=== PATIENT | female | born 1980 | race Caucasian/White ===

== ENCOUNTER 2016-11-19 22:19 | Outpatient (CLI) | payer MEDICAID ==
[~2016-11-19] VITALS: Ht 165.1 cm; Wt 91.0 kg
[~2016-11-19 22:19] MED LIST: ACET325T33 PO; ACET500C5 PO; ALB.5NB20; NO NEW MEDS; PREN1TAB49 PO
[2016-11-19 22:25] VITALS: Ht 165.1 cm; Wt 91.0 kg
--- NOTE | 2016-11-19 23:35 | PN ---
Date/Time of Note Date/Time of Note DATE: 11/19/16 TIME: 23:21 OB Subjective Subjective Subjective 36 yo P5 @ 39 wks 2 days, r/o SROM, c/o LOF, which she thinks may have been urine Good FM, no VB, rare ctx POB- x 5 OB Objective Objective Objective 102/55; 69, 18, 98.2 Abdomen- gravid, n/t SSE: neg nitrazine, neg pooling SVE: 50/-2 Abdomen: WNL Extremities: Normal Cervical Dilatation: 3cm Effacement: 50% Station: -2 Membranes: Intact Accelerations: Accelerations Present Decelerations: No Decelerations Varibility: Moderate Contractions on Admission: >10 Minutes Apart OB Assessment/Plan Other Assessment: 36 yo P5 @ 39 wks 2 days, presents for r/o SROM - reassuring status - patient does not appear to be ruptured - is not feeling ctx Other plan: will send ROM+, if neg, recheck in 2 hrs if SVE unchanged, d/c home w labor precautions ARACELIS SANTOS MD Nov 19, 2016 23:32
--- NOTE | 2016-11-20 | RADRPT ---
PROCEDURE: ULTRASOUND BIOPHYSICAL PROFILE CLINICAL INDICATION: 36-year-old female with decreased movement for viability. TECHNIQUE: Multiple sonographic images were obtained in order to perform a biophysical profile The images were reviewed on a PACS workstation. COMPARISON: Ultrasound OB July 02, 2016. FINDINGS: There is a single viable intrauterine gestation. There is a vertex presentation. Cardiac activity i s present at 157 beats per minute. The placenta is anterior. The results of the biophysical profile are as follows: breathing movement = 2/2 Gross body movement = 2/2 tone = 2/2 Qualitative amniotic fluid volume = 2/2 Amniotic fluid index equals 10.9 cm. This yields a biophysical profile score of 8/8. IMPRESSION: Biophysical profile score is 8/8. .Jerardo Forbes MD, MD Date Time Electronically viewed and signed by .Jerardo Forbes MD, on 11/20/2016 00:00 .M/
--- NOTE | 2016-11-20 02:14 | TRIAGE ---
OB Triage Datetime Report Generated by CPN: 11/20/2016 02:14 Datetime: 11/20/2016 01:00 Stage of : OB Triage Labor Evaluation Frequency: IRREG Monitor Mode: External Duration (sec)2399: 80-120 Quality: Mild Pattern: Normal: <= 5 Contractions in 10 Minutes Resting Tone Campbell: Relaxed Heart Rate FHR Baseline Rate: 130 Monitor Mode: External US Variability: Moderate 6-25 bpm Accelerations: 15X15 Decelerations: None Category: Category I Datetime: 11/20/2016 00:00 Stage of : OB Triage Labor Evaluation Frequency: 3-10 Monitor Mode: External Duration (sec)2399: 50-180 Quality: Mild Pattern: Normal: <= 5 Contractions in 10 Minutes Resting Tone Campbell: Relaxed Heart Rate FHR Baseline Rate: 130 Monitor Mode: External US Variability: Moderate 6-25 bpm Accelerations: 15X15 Decelerations: None Category: Category I Pain Goal: 5 Datetime: 11/19/2016 23:11 Assessment Type: Triage Maternal Assessment Level of Consciousness: Fully Conscious DTR's/Clonus: DTRs 2+; No Clonus Headache: Denies Blurred Vision: No Respiratory Effort: Unlabored; Regular Rhythm; Equal Expansion Breath Sounds, Left: Clear and Equal Breath Sounds, Right: Clear and Equal Nausea/Vomiting: Denies RUQ Epigastric Pain: Denies Lower Extremities Edema: None Upper Extremities Edema: None Facial Edema: None Fall Risk Assessment History of Falling: (0) No Secondary Diagnosis: (0) No Ambulatory Aid: (0) Bedrest/Nurse Assist IV Therapy: (0) No Gait: (0) Normal/Bedrest/Immobile Mental Status: (0) Oriented to Own Ability Fall Score: 0 Fall Risk Score Definition: No Risk: No action required Datetime: 11/19/2016 23:00 Stage of : OB Triage Temperature Route: Oral Labor Evaluation Frequency: IRREG Monitor Mode: External Duration (sec)2399: 80-120 Quality: Mild Pattern: Normal: <= 5 Contractions in 10 Minutes Resting Tone Campbell: Relaxed Heart Rate FHR Baseline Rate: 135 Monitor Mode: External US Variability: Moderate 6-25 bpm Accelerations: 15X15 Decelerations: None Category: Category I Pain Assessment Pain Scale: 4 Pain Presence: Intermittent Pain Type: Cramping Pain Location: Abdomen; Back Pain Goal: 5 Pain Relief Measures: Comfort Measures Datetime: 11/19/2016 22:54 Vaginal Exam Dilatation (cms): 3.5 Effacement (%): 50 Station: -2 Exam By: RAJAN Vaginal Bleeding: None Cervix, Consistency: Moderate Cervix, Position: Anterior Datetime: 11/19/2016 22:29 Time of Arrival: 11/19/2016 22:15 EGA: 39.2 Arrived By: Wheelchair Arrived From: Home Chief Complaint: ABD PAIN, POSSIBLE SROM, DEC FM SINCE AM Movement: Decreased Contractions: Irregular Rupture of Membranes: Unsure Vaginal Bleeding: None Vaginal Discharge: Present Recent Sexual Intercouse: Yes Abdominal Trauma: Not Applicable Patient Complaints: None Time Provider Notified: 11/19/2016 23:12 Provider Notified: ZOHAIB Initial Plan: EFM, ASSESSMENT, CALL MD FOR ORDERS
== END 2016-11-20 01:20 | disposition home or self-care (01) ==
LOC: L-D 22:19 → OBT 22:19
PROVIDERS: ATTEND Obstetrics & Gynecology
DX: O09.523 Supervision of elderly multigravida, third trimester (principal); Z3A.39 39 weeks gestation of pregnancy
CPT/HCPCS: 76818; 84112; Z7500; G0463

== ENCOUNTER 2016-11-22 13:48 | Inpatient (IN) | payer MEDICAID ==
[~2016-11-22] VITALS: Ht 160 cm; Wt 92.0 kg
[~2016-11-22 13:48] MED LIST changes: -NO NEW MEDS
[2016-11-22 13:54] VITALS: Ht 160 cm; Wt 92.0 kg
--- NOTE | 2016-11-22 13:54 | TRIAGE ---
OB Triage Datetime Report Generated by CPN: 11/22/2016 13:53 Datetime: 11/22/2016 13:48 Time of Arrival: 11/22/2016 13:48 EGA: 39.5 Arrived By: Wheelchair Arrived From: Home Chief Complaint: R/O LABOR Movement: Present Contractions: Regular Time Contractions Began: 11/22/2016 08:00 Contractions: Q 8 Rupture of Membranes: Denies Vaginal Discharge: Denies Recent Sexual Intercouse: Denies Abdominal Trauma: Not Applicable Patient Complaints: Other Time Provider Notified: 11/22/2016 13:50 Provider Notified: ZOHAIB Initial Plan: MONITOR AND VE Datetime: 11/19/2016 23:11 Fall Risk Assessment Fall Score: 0 Fall Risk Score Definition: No Risk: No action required Datetime: 11/19/2016 22:29 EGA: 39.2
[2016-11-22 13:55] VITALS: RESP 19
[2016-11-22] MEDS ORDERED: LACTATED RINGER'S 1,000 ML IV SCH (13:55)
[2016-11-22] MEDS ORDERED: AMPICILLIN 2 GM/NS (PMX) 100 ML ONE (13:58)
[2016-11-22] MEDS ORDERED: OXYTOCIN 30 UNITS/LR 500 ML IV SCH ×3 (14:00→15:00)
[2016-11-22] MEDS ORDERED: OXYTOCIN 30 UNITS/LR 500 ML IV PRN ×2 (14:00→16:30)
[2016-11-22] MEDS ORDERED: MISOPROSTOL 200 MCG TAB PR PRN ×2 (14:00→16:30)
[2016-11-22] MEDS ORDERED: BUTORPHANOL 2 MG INJ IV PRN (14:00)
[2016-11-22] MEDS ORDERED: CARBOPROST 250 MCG INJ IM PRN ×2 (14:00→16:30)
[2016-11-22] MEDS ORDERED: IBUPROFEN 600 MG TAB PO PRN (14:00)
[2016-11-22] MEDS ORDERED: METHYLERGONOVINE 0.2 MG INJ IM PRN ×2 (14:00→16:30)
[2016-11-22] MEDS ORDERED: LIDOCAINE 1% (MPF) 30 ML INJ INJ PRN (14:00)
[2016-11-22] MEDS ORDERED: AMPICILLIN 2 GM/NS (PMX) 100 ML IV ONE (14:00)
[2016-11-22 14:14] LABS: ADD SCAN DIFF NO
[2016-11-22 14:17] LABS: BASOPHILS % 0.3 % (0.0-2.0); EOSINOPHILS # 0.1 10^3/ul (0.0-0.5); EOSINOPHILS % 0.8 % (0.0-7.0); HEMATOCRIT 37.2 % (37.0-47.0); HEMOGLOBIN 12.9 g/dl (12.0-16.0); LYMPHOCYTES # 1.2 10^3/ul (0.8-2.9); LYMPHOCYTES % 13.1 % (15.0-51.0); MEAN CORPUSCULAR HEMOGLOBIN 32.2 pg (29.0-33.0); MEAN CORPUSCULAR HGB CONC 34.7 g/dl (32.0-37.0); MEAN CORPUSCULAR VOLUME 92.8 fl (82.0-101.0); MEAN PLATELET VOLUME 10.2 fl (7.4-10.4); MONOCYTE # 0.6 10^3/ul (0.3-0.9); MONOCYTES % 6.1 % (0.0-11.0); NEUTROPHIL # 7.1 10^3/ul (1.6-7.5); NEUTROPHILS % 79.1 % (39.0-77.0); PLATELET COUNT 225 10^3/UL (140-415); RED BLOOD COUNT 4.01 10^6/ul (4.20-5.40); RED CELL DISTRIBUTION WIDTH 14.3 % (11.5-14.5)
[2016-11-22 14:27] LABS: INR 0.92; PROTIME 12.4 Sec (12.2-14.2)
[2016-11-22 14:28] LABS: PARTIAL THROMBOPLASTIN TIME 25.1 Sec (25.0-35.0)
[2016-11-22] MEDS ORDERED: LACTATED RINGER'S 1,000 ML IV PRN (15:00)
--- NOTE | 2016-11-22 16:01 | HP ---
Date/Time of Note Date/Time of Note DATE: 11/22/16 TIME: 16:00 OB - History Hx of Present Free Text/Dictation term preg in active labor Care: Good Care Ultrasounds: Normal mid trimester US Obstetrical Complications: None Medical Complications: None Past Family/Social History * Past Medical, Surgical, Family and Obstetric Histories reviewed from chart. OB Admission Exam Vital Signs Vital Signs Vital Signs Date Time Temp Pulse Resp B/P Pulse Ox O2 Delivery O2 Flow Rate FiO2 11/22/16 13:55 98.0 19 99 Physical Exam HEENT: WNL Heart: Rhythm Normal Lungs: Clear, Equal Abdomen: WNL Extremities: Normal Reflexes: Normal Cervical Dilatation: 10cm Effacement: 100% Station: +2 Membranes: Ruptured Amniotic Fluid: Thin Meconium Heart Rate: 130's Accelerations: Accelerations Present Decelerations: No Decelerations Last 72 hours Lab Results CBC & BMP 11/22/16 14:00 OB Assessment/Plan Plan: Expectant Management SABRINA PENNY MD Nov 22, 2016 16:01
--- NOTE | 2016-11-22 16:03 | LDN ---
Date/Time of Note Date/Time of Note DATE: 11/22/16 TIME: 16:01 Delivery Summary NSD, W/ NO COMPLICATIONS Placenta Delivered: Spontaneously Meconium: none Perineum intact?: Yes Anesthesia type: None Estimated blood loss: 350 Sponge & Needle done & correct: Yes All needle counts correct: Yes Any foreign bodies felt in the: No Problems: SABRINA PENNY MD Nov 22, 2016 16:02
[2016-11-22] MEDS: OXYTOCIN 30 UNITS/LR 500 ML IV SCH ×2 (16:26→20:03)
[2016-11-22] MEDS ORDERED: ZOLPIDEM 5 MG TAB PO PRN (16:30)
[2016-11-22] MEDS ORDERED: DIPHENHYDRAMINE 25 MG CAP PO PRN (16:30)
[2016-11-22] MEDS ORDERED: ACETAMINOPHEN/CODEINE #3 TAB PO PRN (16:30)
[2016-11-22] MEDS ORDERED: SENNA/DOCUSATE NA (8.6MG/50MG) TAB PO PRN (16:30)
[2016-11-22] MEDS ORDERED: BENZOCAINE 20% 56 ML SPRAY TOP PRN (16:30)
[2016-11-22] MEDS ORDERED: LANOLIN 7 GM TUBE TOP PRN (16:30)
[2016-11-22] MEDS ORDERED: ACETAMINOPHEN 325 MG TAB PO PRN (16:30)
[2016-11-22] MEDS ORDERED: MAGNESIUM HYDROXIDE 30ML CUP PO PRN (16:30)
[2016-11-22 17:00] VITALS: BP 113/79; PULSE 71; RESP 18
[2016-11-22 17:29] VITALS: BP 108/66; PULSE 66; RESP 18
[2016-11-22] MEDS: IBUPROFEN 800 MG TAB PO SCH (17:36)
[2016-11-22] MEDS: LACTATED RINGER'S 1,000 ML IV* SCH (17:48)
[2016-11-22] MEDS: WITCH HAZEL/GLYCERIN PAD PR PRN ×2 (17:49→17:50)
[2016-11-22] MEDS ORDERED: AMPICILLIN 1 GM/NS (PMX) 50 ML IV SCH (18:00)
[2016-11-22 20:05] VITALS: BP 101/55; PULSE 59; RESP 19
[2016-11-23] VITALS: BP 112/62; PULSE 64; RESP 18
[2016-11-23] MEDS: LACTATED RINGER'S 1,000 ML IV* SCH ×3 (00:03→16:03)
[2016-11-23] MEDS: IBUPROFEN 800 MG TAB PO SCH ×4 (00:06→17:50)
[2016-11-23 04:15] VITALS: BP 96/58; PULSE 58; RESP 18
[2016-11-23 08:14] LABS: ADD SCAN DIFF NO
[2016-11-23 08:20] VITALS: BP 99/56; PULSE 61; RESP 18
[2016-11-23 08:42] LABS: BASOPHIL # 0.1 10^3/ul (0.0-0.1); BASOPHILS % 0.5 % (0.0-2.0); EOSINOPHILS # 0.2 10^3/ul (0.0-0.5); EOSINOPHILS % 1.6 % (0.0-7.0); HEMATOCRIT 33.1 % (37.0-47.0); HEMOGLOBIN 10.9 g/dl (12.0-16.0); LYMPHOCYTES % 20.3 % (15.0-51.0); MEAN CORPUSCULAR HEMOGLOBIN 31.3 pg (29.0-33.0); MEAN CORPUSCULAR HGB CONC 32.9 g/dl (32.0-37.0); MEAN CORPUSCULAR VOLUME 95.1 fl (82.0-101.0); MEAN PLATELET VOLUME 10.4 fl (7.4-10.4); MONOCYTE # 0.6 10^3/ul (0.3-0.9); MONOCYTES % 6.2 % (0.0-11.0); NEUTROPHIL # 7.1 10^3/ul (1.6-7.5); NEUTROPHILS % 70.7 % (39.0-77.0); PLATELET COUNT 203 10^3/UL (140-415); RED BLOOD COUNT 3.48 10^6/ul (4.20-5.40); RED CELL DISTRIBUTION WIDTH 14.6 % (11.5-14.5); WHITE BLOOD COUNT 10.1 10^3/ul (4.8-10.8)
--- NOTE | 2016-11-23 10:02 | DS ---
Date/Time of Note Date/Time of Note DATE: 11/23/16 TIME: 10:01 Discharge Summary Admission/Discharge Info Admit Date/Time Nov 22, 2016 at 13:50 Discharge Date/Time Final Diagnosis term , vag delivery Patient Condition: Good Hospital Course unremarkable Home Meds Reported Medications Vits W-Ca,Fe,Fa(<1MG) () 1 Tab Tablet, 1 TAB PO 11/30/11 Albuterol Sulfate* (Albuterol Sulfate* Neb) 20 Ml Nebu 08/19/10 Discontinued Reported Medications [No New Meds] No Conflict Check 12/06/11 Pending Labs Laboratory Tests Test 11/22/16 14:00 11/23/16 07:40 Activated Partial Thromboplast Time 25.1Sec (25.0-35.0) Basophils # 0.010^3/ul (0.0-0.1) 0.110^3/ul (0.0-0.1) Basophils % 0.3% (0.0-2.0) 0.5% (0.0-2.0) Eosinophils # 0.110^3/ul (0.0-0.5) 0.210^3/ul (0.0-0.5) Eosinophils % 0.8% (0.0-7.0) 1.6% (0.0-7.0) Hematocrit 37.2% (37.0-47.0) 33.1% (37.0-47.0) Hemoglobin 12.9g/dl (12.0-16.0) 10.9g/dl (12.0-16.0) Hepatitis B Surface Antigen NEGATIVE (NEGATIVE) INR International Normalized Ratio 0.92 Lymphocytes # 1.210^3/ul (0.8-2.9) 2.010^3/ul (0.8-2.9) Lymphocytes % 13.1% (15.0-51.0) 20.3% (15.0-51.0) Mean Corpuscular Hemoglobin 32.2pg (29.0-33.0) 31.3pg (29.0-33.0) Mean Corpuscular Hemoglobin Concent 34.7g/dl (32.0-37.0) 32.9g/dl (32.0-37.0) Mean Corpuscular Volume 92.8fl (82.0-101.0) 95.1fl (82.0-101.0) Mean Platelet Volume 10.2fl (7.4-10.4) 10.4fl (7.4-10.4) Monocytes # 0.610^3/ul (0.3-0.9) 0.610^3/ul (0.3-0.9) Monocytes % 6.1% (0.0-11.0) 6.2% (0.0-11.0) Neutrophils # 7.110^3/ul (1.6-7.5) 7.110^3/ul (1.6-7.5) Neutrophils % 79.1% (39.0-77.0) 70.7% (39.0-77.0) Nucleated Red Blood Cells # 0.010^3/ul (0.0-0.0) 0.010^3/ul (0.0-0.0) Nucleated Red Blood Cells % 0.0/100WBC (0.0-0.0) 0.0/100WBC (0.0-0.0) Platelet Count 23652^3/UL (140-415) 01648^3/UL (140-415) Prothrombin Time 12.4Sec (12.2-14.2) Prothrombin Time Ratio 1.0 Rapid Plasma Reagin NONREACTIVE (NR) Red Blood Count 4.0110^6/ul (4.20-5.40) 3.4810^6/ul (4.20-5.40) Red Cell Distribution Width 14.3% (11.5-14.5) 14.6% (11.5-14.5) White Blood Count 9.010^3/ul (4.8-10.8) 10.110^3/ul (4.8-10.8) SABRINA PENNY MD Nov 23, 2016 10:02
[2016-11-23 15:50] VITALS: BP 100/55; PULSE 67; RESP 18
[2016-11-23 19:50] VITALS: BP 92/55; PULSE 74; RESP 18
[2016-11-24] MEDS: LACTATED RINGER'S 1,000 ML IV* SCH (00:03)
[2016-11-24] MEDS: IBUPROFEN 800 MG TAB PO SCH ×4 (00:17→17:24)
[2016-11-24 04:00] VITALS: BP 93/51; PULSE 51; RESP 18
[2016-11-24 08:15] VITALS: BP 94/52; RESP 18
[2016-11-24] MEDS ORDERED: INFLUENZA VIRUS VACCINE 0.5 ML (DISPENSING) IM* ONE (09:00)
[2016-11-24] MEDS ORDERED: MEASLES,MUMPS,RUBELLA VACCINE INJ SC* ONE (09:00)
[2016-11-24] MEDS ORDERED: DIPHTH/TET/ACEL PERTUSS (ADULT) 0.5 ML VIAL IM* ONE (09:00)
[2016-11-24] MEDS ORDERED: VARICELLA VACCINE LIVE/PF 1,350 UNIT/0.5 ML ML SC* ONE (09:00)
[2016-11-24 15:30] VITALS: BP 93/50; PULSE 67; RESP 19
== END 2016-11-24 18:15 | disposition home or self-care (01) | DRG 775 ==
LOC: OBT 13:48 → L-D 13:50 → PP1 17:10
PROVIDERS: ADMIT Obstetrics & Gynecology; ATTEND Obstetrics & Gynecology
PROC: 10E0XZZ Delivery of Products of Conception, External Approach (ICD-10-PCS; principal; 2016-11-22)
PROC: 3E0234Z Introduction of Serum, Toxoid and Vaccine into Muscle, Percutaneous Approach (ICD-10-PCS; 2016-11-24)
DX: O80 Encounter for full-term uncomplicated delivery (principal); Z23 Encounter for immunization; Z3A.39 39 weeks gestation of pregnancy; Z37.0 Single live birth
CPT/HCPCS: 85025; 85610; 85730; 86592; 86900; 86901; 87340; 90686; 90715; 90716; 99464; G0463; J0290; J2210; J2590; J7120

== ENCOUNTER 2018-07-12 20:54 | Emergency (ER) | END 2018-07-13 03:00 | disposition home or self-care (01) ==